=== PATIENT | female | born 1995 | race Caucasian/White ===

== ENCOUNTER 2016-10-08 12:07 | Emergency (ER) | payer MEDICAID, OTHER ==
[~2016-10-08] VITALS: Ht 160 cm; Wt 71.0 kg
[2016-10-08 12:09] VITALS: Ht 160 cm; Wt 71.0 kg
[2016-10-08] MEDS ORDERED: IBUPROFEN 200 MG TAB PO STA (13:56)
[2016-10-08] MEDS ORDERED: ACETAMINOPHEN 325 MG TAB PO STA (13:56)
[2016-10-08 14:35] LABS: ADD SCAN DIFF NO
[2016-10-08 14:38] LABS: HEMATOCRIT 42.2 % (37.0-47.0); HEMOGLOBIN 14.6 g/dl (12.0-16.0); LYMPHOCYTES % 23.9 % (18.0-55.0); MEAN CORPUSCULAR HGB CONC 34.6 g/dl (32.0-37.0); MEAN CORPUSCULAR VOLUME 83.7 fl (72.0-104.0); MEAN PLATELET VOLUME 9.7 fl (7.4-10.4); MONOCYTES % 6.6 % (0.0-13.0); NEUTROPHILS % 67.6 % (30.0-74.0); PLATELET COUNT 391 10^3/UL (140-415); RED BLOOD COUNT 5.04 10^6/ul (4.20-5.40); RED CELL DISTRIBUTION WIDTH 13.1 % (11.5-14.5); WHITE BLOOD COUNT 8.7 10^3/ul (4.8-10.8)
[2016-10-08 14:39] LABS: BASOPHILS % 0.3 % (0.0-2.0); EOSINOPHILS # 0.1 10^3/ul (0.0-0.5); EOSINOPHILS % 1.1 % (0.0-7.0); LYMPHOCYTES # 2.1 10^3/ul (0.8-2.9); MONOCYTE # 0.6 10^3/ul (0.3-0.9); NEUTROPHIL # 5.9 10^3/ul (1.6-7.5)
[2016-10-08 14:44] LABS: ADD UMIC YES; URINE BILIRUBIN (Dip) NEGATIVE (NEGATIVE); URINE BLOOD (Dip) 3+ (NEGATIVE); URINE COLOR LT. YELLOW (YELLOW); URINE GLUCOSE (Dip) NEGATIVE (NEGATIVE); URINE KETONES (Dip) NEGATIVE (NEGATIVE); URINE LEUKOCYTE ESTERASE (Dip) NEGATIVE (NEGATIVE); URINE NITRITE (Dip) NEGATIVE (NEGATIVE); URINE TOTAL PROTEIN (Dip) NEGATIVE (NEGATIVE); URINE UROBILINOGEN (Dip) 0.2 E.U./dL (0.1-1.0)
[2016-10-08 14:56] LABS: URINE RBCS >50 /HPF (0)
[2016-10-08] MEDS ORDERED: ACET325T33 PO (15:15)
[2016-10-08] MEDS ORDERED: IBUP400T22 PO (15:15)
--- NOTE | 2016-10-08 15:21 | ERD ---
ER Documentation Chief Complaint Date/Time DATE: 10/08/16 TIME: 15:17 Chief Complaint vag bleed , pelvic pain x 2 days HPI This is a 21-year-old female presenting to the emergency room complaining of pelvic pain and vaginal bleeding with onset of her menstrual period past 2 days. Patient is complaining of moderate pelvic pain. She denies any nausea, vomiting, diarrhea. She states that she has been using on 6 pads per day. Patient states that has the Implanon in her arm and her last menstrual period was in July, she states that she has not been regular since the contraceptive. Patient has not tried anything for pain. She denies any fevers. ROS All systems reviewed and are negative except as per history of present illness. Medications Home Meds Active Scripts Ibuprofen* (Ibuprofen*) 400 Mg Tablet, 400 MG PO Q6H Y for PAIN, #30 TAB Prov:BHARATH GREEN PA-C 10/08/16 Acetaminophen* (Tylenol*) 325 Mg Tablet, 2 TAB PO Q6 Y for PAIN AND OR ELEVATED TEMP, #30 TAB Prov:BHARATH GREEN PA-C 10/08/16 PMhx/Soc Medical and Surgical Hx: pt denies Medical Hx, pt denies Surgical Hx Hx Alcohol Use: No Hx Substance Use: No Hx Tobacco Use: No Smoking Status: Never smoker Physical Exam Vitals Vital Signs Date Time Temp Pulse Resp B/P Pulse Ox O2 Delivery O2 Flow Rate FiO2 10/08/16 12:09 97.7 89 16 132/71 98 Physical Exam Const: [] GENERAL: well-developed/well-nourished, in no apparent distress, non-toxic appearing HENT: NC/AT, moist mucous membranes EYES: Conjunctiva normal NECK: Supple, no lymphadenopathy PULM: CTA bilaterally, no rales, rhonchi, or wheezing heard CV: Normal S1S2, RRR, good capillary refill GI: Soft, non-distended, tender to palpation pelvic Normal bowel sounds, no masses or organomegaly felt on exam No gross peritonitis, no bruits Negative Rovsing, negative Field, negative McBurney's point, Negative CVAT BACK: No masses EXT: No clubbing, cyanosis, or edema NEURO: Alert and Orientated SKIN: Intact, normal turgor PSYCH: Normal mood and mentation Result Diagram: 10/08/16 1425 Results 24 hrs Laboratory Tests Test 10/08/16 14:25 White Blood Count 8.710^3/ul Red Blood Count 5.0410^6/ul Hemoglobin 14.6g/dl Hematocrit 42.2% Mean Corpuscular Volume 83.7fl Mean Corpuscular Hemoglobin 29.0pg Mean Corpuscular Hemoglobin Concent 34.6g/dl Red Cell Distribution Width 13.1% Platelet Count 61863^3/UL Mean Platelet Volume 9.7fl Neutrophils % 67.6% Lymphocytes % 23.9% Monocytes % 6.6% Eosinophils % 1.1% Basophils % 0.3% Nucleated Red Blood Cells % 0.0/100WBC Neutrophils # 5.910^3/ul Lymphocytes # 2.110^3/ul Monocytes # 0.610^3/ul Eosinophils # 0.110^3/ul Basophils # 0.010^3/ul Nucleated Red Blood Cells # 0.010^3/ul Urine Color LT. YELLOW Urine Clarity CLEAR Urine pH 6.0 Urine Specific [place] 1.020 Urine Ketones NEGATIVE Urine Nitrite NEGATIVE Urine Bilirubin NEGATIVE Urine Urobilinogen 0.2 E.U./dL Urine Leukocyte Esterase NEGATIVE Urine Microscopic RBC >50/HPF Urine Microscopic WBC 5-10/HPF Urine Hemoglobin 3+ Urine Glucose NEGATIVE% Urine Total Protein NEGATIVE Current Medications Medications (Trade) Dose Ordered Sig/John Route PRN Reason Start Time Stop Time Status Last Admin Dose Admin Acetaminophen (Tylenol Tab) 650 mg ONCE STAT PO 10/08/16 13:56 10/08/16 13:58 DC 10/08/16 14:54 Ibuprofen (Motrin) 400 mg ONCE STAT PO 10/08/16 13:56 10/08/16 13:58 DC 10/08/16 14:54 Procedures/MDM This is a 21-year-old female presenting to emergency department complaining of vaginal bleeding and pelvic pain for the past 2 days on onset of her menstrual period. Patient has the Implanon in her arm, she has irregular menstrual periods because of that her last much appears in July. Patient's pain is likely due to her menstrual period. I have low suspicion for ovarian torsion or ovarian abscess. Low suspicion for urinary tract infection, PID. Patient appears well, she has stable vital signs. I have given her Tylenol ibuprofen and reassessed her, she has improvement in her pain. There was no evidence of significant anemia with blood work. 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 Patient understands and agrees with plan Departure Diagnosis: Primary Impression: Vaginal bleeding Condition: Stable Patient Instructions: Hormones Control Your Menstrual Cycle, Dysmenorrhea Referrals: GEOLOGICAL SURVEY FIELD ASSISTANT [place] [address] [facility] [address] [place] [address]ABUSLEME MARIA [address] [place] [address] [address] SIBLEY BOISE [address] [place] [address] [address] [facility] [address] [facility], [address], [facility] [address] [address] [facility] [address] [place] [address] [facility] [address] [place] [address] [address] [facility] [id number] - CHARO HERNAN[address]Z [address] [facility] [address] [address] MENDEZ, KIMBERLY [address] [facility], [place] [id number] DR SZYMANSKI, FARNY [address] [place], [place] [id number] [facility] () Usted se birch hecho un examen mdico de control que le indica que no est en dejah condicin que requiera tratamiento urgente en el Departamento de Emergencia. Un estudio ms profundo y el tratamiento de holder condicin pueden esperar sin ningn riesgo hasta que usted sea atendida/o en el consultorio de holder mdico o dejah cl bartolo. Es responsabilidad suya arreglar dejah frances para el seguimiento del rebecca. MANEJO DE CONDICIONES NO URGENTES EN EL FUTURO 1) Si usted tiene un mdico de atencin primaria: Usted debera llamar a holder mdico de atencin primaria antes de venir al departamento de emergencia. Despus de las horas de consultorio, holder doctor o holder asociado/a est disponible por telfono. El mdico o enfermero de shahbaz en el servicio telefnico puede asesorarle por ashely medio para atender el problema, o rebecca contrario se puede programar dejah frances. 2) Si usted no tiene un mdico de atencin primaria: Llame al mdico o clnica de referencia que aparece abajo olga lidia las horas de consultorio para hacer dejah frances para que le vean. CLINICAS: [facility] [phone] [facility] [phone] [address] [facility]. [place] 025 [phone] [facility]. [facility] [phone] [facility]. [place] [id number] [phone] [facility]. [phone] [address] Additional Instructions: Visite a holder mdico maana para un EXAMEN.Regrese a estas instalaciones si no se mejora tiesha esperbamos o tiesha le dijimos. [place] toda la medicina jean y tiesha se le indic. Regrese a estas instalaciones si no se mejora tiesha esperbamos o tiesha le dijimos. BHARATH GREEN PA-C October 08, 2016 15:21
[2016-10-08 17:25] VITALS: BP 122/67; PULSE 84; RESP 16; TEMP 98.3
== END 2016-10-08 17:25 | disposition home or self-care (01) ==
LOC: FTE 12:07
DX: N93.9 Abnormal uterine and vaginal bleeding, unspecified (principal)
CPT/HCPCS: 81001; 85025; 86850; 86900; 86901; Z7502; Z7610; 81003; 99283